=== PATIENT | male | born 1970 | race Two or more races ===

== ENCOUNTER 2024-01-20 18:30 | Inpatient (IN) | payer MEDICAID, OTHER ==
[~2024-01-20] VITALS: Ht 172.7 cm; Wt 77.4 kg
[2024-01-20] MEDS: METOCLOPRAMIDE HCL 5 MG/ML 2 ML VIAL IVP ONE (19:22)
[2024-01-20] MEDS: SODIUM CHLORIDE 0.9% 1,000 ML IV ONE ×2 (19:22→21:26)
[2024-01-20 19:31] LABS: BASOPHILS % (AUTO) 0.3 % (0.0-2.0); EOSINOPHILS % (AUTO) 0.1 % (1.0-6.0); HEMATOCRIT 51.5 % (41-53); LYMPHOCYTES % (AUTO) 7.7 % (22.0-44.0); MEAN CORPUSCULAR HEMOGLOBIN 29.4 pg (26.0-34.0); MEAN CORPUSCULAR HGB CONC 33.1 G/dL (31.0-37.0); MEAN CORPUSCULAR VOLUME 89 fL (80-100); NEUTROPHILS # (AUTO) 22.4 K/uL (1.8-7.7); PLATELET COUNT (AUTO) 276 K/uL (150-450); RED BLOOD CELL COUNT(AUTO) 5.79 MIL/uL (4.50-5.90); RED CELL DISTRIBUTION WIDTH 13.2 % (11.5-14.5); WHITE BLOOD COUNT (AUTO) 25.4 K/uL (4.5-11.0)
[2024-01-20 19:33] LABS: NEUTROPHILS % (AUTO) 87.9 % (40.0-70.0)
[2024-01-20 19:34] LABS: ANION GAP 17 mmol/L (8-16); CALCIUM, TOTAL 9.8 mg/dL (8.8-10.5); CARBON DIOXIDE 24 mmol/L (22-29); CHLORIDE 89 mmol/L (98-107); CREATININE 0.91 mg/dL (0.60-1.30); GLOMERULAR FILTR. RATE CALC > 60 mL/min (>60); GLUCOSE,RANDOM 104 mg/dL (70-110); POTASSIUM 3.1 mmol/L (3.5-5.1); SODIUM SERUM 130 mmol/L (136-145); UREA NITROGEN, BLOOD 9 mg/dL (7-18)
[2024-01-20 19:41] LABS: ALANINE AMINOTRANSFERASE 26 U/L (12-78); ALBUMIN 4.5 g/dL (3.4-5.0); ALKALINE PHOSPHATASE 141 U/L (46-116); ASPARTATE AMINOTRANSFERASE 36 U/L (15-37); BILIRUBIN,TOTAL 1.2 mg/dL (0.1-1.0); LIPASE 18 U/L (16-77); TOTAL PROTEIN, SERUM 8.7 g/dL (6.4-8.2); TROPONIN I-HIGH SENSITIVITY 6 ng/L (<76)
[2024-01-20 19:57] LABS: PLATELET MORPHOLOGY COMMENT GIANT PLTS PRESENT; RBC MORPHOLOGY COMMENT NORMAL RBC MORPH
[2024-01-20] MEDS: POTASSIUM CHL 10 MEQ/WATER 50 ML IV SCH (20:25)
[2024-01-20 20:35] LABS: APPEARANCE,URINE CLEAR (CLEAR); BILIRUBIN,URINE NEGATIVE (NEGATIVE); COLOR,URINE COLORLESS (YELLOW); GLUCOSE, URINE (UA) NEGATIVE (NEGATIVE); KETONES,URINE TRACE mg/dL (NEGATIVE); LEUKOCYTE ESTERASE ,URINE NEGATIVE (NEGATIVE); NITRATE,URINE NEGATIVE (NEGATIVE); OCCULT BLOOD,URINE NEGATIVE (NEGATIVE); PROTEIN,URINE NEGATIVE (NEGATIVE); SPECIFIC GRAVITIY, URINE 1.005 (1.003-1.030); UROBILINOGEN,URINE <=1.0 mg/dL (<=1.0)
[2024-01-20 20:43] LABS: BARBITURATE SCREEN, URINE NEGATIVE (NEGATIVE); BENZODIAZEPINES SCREEN,URINE NEGATIVE (NEGATIVE); CANNABINOID SCREEN,URINE POSITIVE (NEGATIVE); COCAINE SCREEN,URINE NEGATIVE (NEGATIVE); METHADONE SCREEN, URINE NEGATIVE (NEGATIVE); OPIATE SCREEN,URINE NEGATIVE (NEGATIVE); PHENCYCLIDINE SCREEN,URINE NEGATIVE (NEGATIVE)
[2024-01-20 20:54] LABS: ALCOHOL, URINE DRUG SCREEN NEGATIVE (NEGATIVE); AMPHET/METH SCREEN,URINE NEGATIVE (NEGATIVE)
[2024-01-20] MEDS: MORPHINE SULFATE 4 MG/ML SYRINGE IVP ONE (21:17)
[2024-01-20] MEDS: MAG HYDROX/ALUMINUM HYD/SIMETH ES 30 ML SUSPENSION UDCUP PO ONE (21:18)
[2024-01-20] MEDS ORDERED: SODIUM CHLORIDE 0.9% 100 ML ONE (21:22)
[2024-01-20] MEDS ORDERED: IOHEXOL 350 MG/ML 100 ML VIAL ONE (21:22)
[2024-01-20] MEDS: PANTOPRAZOLE SODIUM 40 MG/VIAL IVP ONE (21:25)
[2024-01-21] MEDS ORDERED: ONDANSETRON HCL 4 MG/2 ML VIAL IVP PRN (05:30)
[2024-01-21] MEDS ORDERED: BISACODYL 10 MG RECTAL RECTAL SUPPOSITORY PR PRN (05:30)
[2024-01-21] MEDS: LORazepam 2 MG/ML VIAL IVP PRN (06:05)
[2024-01-21] MEDS: ZOLPIDEM TARTRATE 5 MG TABLET PO PRN (06:05)
[2024-01-21 08:00] VITALS: BP 126/85; PULSE 75; RESP 18; TEMP 97.8; O2SAT 97
[2024-01-21] MEDS: DOCUSATE SODIUM 100 MG CAPSULE PO SCH (09:01)
[2024-01-21] MEDS: PANTOPRAZOLE SODIUM 40 MG DR TABLET PO SCH (09:01)
[2024-01-21] MEDS: HEPARIN SODIUM,PORCINE 5,000 UNITS/ML VIAL SQ SCH (09:02)
[2024-01-21] MEDS: MORPHINE SULFATE 2 MG/ML SYRINGE IVP PRN (14:59)
[2024-01-21 15:44] VITALS: BP 132/91; PULSE 61; RESP 20; TEMP 98; O2SAT 98
[2024-01-21 19:27] VITALS: BP 127/74; PULSE 68; RESP 18; TEMP 98.3; O2SAT 99
[2024-01-22 00:36] VITALS: BP 122/80; PULSE 74; RESP 18; TEMP 98.1; O2SAT 98
[2024-01-22 03:54] VITALS: BP 134/89; PULSE 84; RESP 18; TEMP 98.3; O2SAT 98
[2024-01-22 06:47] LABS: ANION GAP 12 mmol/L (8-16); CALCIUM, TOTAL 8.5 mg/dL (8.8-10.5); CARBON DIOXIDE 24 mmol/L (22-29); CHLORIDE 95 mmol/L (98-107); CREATININE 0.91 mg/dL (0.60-1.30); GLOMERULAR FILTR. RATE CALC > 60 mL/min (>60); GLUCOSE,RANDOM 100 mg/dL (70-110); POTASSIUM 3.2 mmol/L (3.5-5.1); SODIUM SERUM 131 mmol/L (136-145); UREA NITROGEN, BLOOD 11 mg/dL (7-18)
[2024-01-22 06:54] LABS: BASOPHILS % (AUTO) 0.3 % (0.0-2.0); EOSINOPHILS % (AUTO) 0.2 % (1.0-6.0); HEMATOCRIT 45.6 % (41-53); HEMOGLOBIN 15.1 g/dL (13.5-17.5); LYMPHOCYTES # (AUTO) 1.4 K/uL (1.0-4.8); LYMPHOCYTES % (AUTO) 13.2 % (22.0-44.0); MEAN CORPUSCULAR HEMOGLOBIN 29.7 pg (26.0-34.0); MEAN CORPUSCULAR HGB CONC 33.1 G/dL (31.0-37.0); MEAN CORPUSCULAR VOLUME 90 fL (80-100); MONOCYTES # (AUTO) 0.8 K/uL (0.1-1.0); MONOCYTES % (AUTO) 7.5 % (2.0-9.0); NEUTROPHILS # (AUTO) 8.5 K/uL (1.8-7.7); NEUTROPHILS % (AUTO) 78.8 % (40.0-70.0); PLATELET COUNT (AUTO) 234 K/uL (150-450); RED BLOOD CELL COUNT(AUTO) 5.07 MIL/uL (4.50-5.90); RED CELL DISTRIBUTION WIDTH 13.4 % (11.5-14.5); WHITE BLOOD COUNT (AUTO) 10.7 K/uL (4.5-11.0)
[2024-01-22 09:06] VITALS: BP 123/92; PULSE 67; RESP 16; TEMP 99.8; O2SAT 100
[2024-01-22] MEDS: HYDROCODONE/ACETAMINOPHEN 5-325 MG TABLET PO PRN (09:18)
[2024-01-22] MEDS ORDERED: ONDA-104 PO (12:05)
[2024-01-22] MEDS ORDERED: PANT-31 PO (12:05)
[2024-01-22] MEDS: POTASSIUM CHLORIDE 20 MEQ ER TABLET PO ONE (13:54)
[2024-01-22 20:17] VITALS: BP 141/89; PULSE 70; RESP 18; TEMP 97.9; O2SAT 98
[2024-01-22] MEDS: ACETAMINOPHEN 325 MG TABLET PO PRN (20:28)
[2024-01-22] MEDS: MAGNESIUM HYDROXIDE SUSPENSION 30 ML UDCUP PO PRN (21:28)
[2024-01-23 08:00] VITALS: BP 141/84; PULSE 67; RESP 18; TEMP 98.2; O2SAT 99
[2024-01-23 09:14] LABS: BASOPHILS % (AUTO) 0.5 % (0.0-2.0); EOSINOPHILS % (AUTO) 0.7 % (1.0-6.0); HEMATOCRIT 46.5 % (41-53); HEMOGLOBIN 15.4 g/dL (13.5-17.5); LYMPHOCYTES # (AUTO) 1.4 K/uL (1.0-4.8); LYMPHOCYTES % (AUTO) 20.9 % (22.0-44.0); MEAN CORPUSCULAR HEMOGLOBIN 29.5 pg (26.0-34.0); MEAN CORPUSCULAR HGB CONC 33.2 G/dL (31.0-37.0); MEAN CORPUSCULAR VOLUME 89 fL (80-100); MONOCYTES # (AUTO) 0.4 K/uL (0.1-1.0); MONOCYTES % (AUTO) 5.4 % (2.0-9.0); NEUTROPHILS # (AUTO) 4.9 K/uL (1.8-7.7); NEUTROPHILS % (AUTO) 72.5 % (40.0-70.0); PLATELET COUNT (AUTO) 247 K/uL (150-450); RED BLOOD CELL COUNT(AUTO) 5.23 MIL/uL (4.50-5.90); RED CELL DISTRIBUTION WIDTH 13.5 % (11.5-14.5); WHITE BLOOD COUNT (AUTO) 6.7 K/uL (4.5-11.0)
[2024-01-23] MEDS: MINERAL OIL 133 ML ENEMA PR ONE (15:07)
== END 2024-01-23 16:58 | disposition home or self-care (01) | DRG 241 ==
LOC: EMS 18:30 → EDH 01-21 05:47 → 5S 01-21 06:40 → 6S 01-22 09:03
PROVIDERS: ADMIT Internal Medicine; ATTEND Internal Medicine
DX: K29.70 Gastritis, unspecified, without bleeding (principal); E87.1 Hypo-osmolality and hyponatremia; E87.6 Hypokalemia; D72.829 Elevated white blood cell count, unspecified; F12.90 Cannabis use, unspecified, uncomplicated; F11.20 Opioid dependence, uncomplicated; T40.715A Adverse effect of cannabis, initial encounter; Y92.89 Other specified places as the place of occurrence of the external cause
CPT/HCPCS: 74019; 74177; 80048; 80076; 80307; 81003; 83690; 83735; 84132; 84484; 85025; 97162; 97165; 99285; C9113; J1644; J2060; J2270; J2765; J3480; J7050